=== PATIENT | male | born 1995 | race American Indian/Alaskan Native ===

== ENCOUNTER 2017-11-20 23:02 | Emergency (ER) | payer BC ==
[~2017-11-20 23:02] MED LIST: DUONEB *Not for PRN Use IH ONE
[2017-11-20] MEDS ORDERED: DELTASONE ONE (23:06)
[2017-11-20] MEDS ORDERED: PROVENTIL IH ONE (23:07)
[2017-11-20] MEDS ORDERED: DUONEB *Not for PRN Use IH ONE (23:07)
[2017-11-21] MEDS ORDERED: PROVENTIL IH ONE ×2 (00:50→03:38)
[2017-11-21] MEDS ORDERED: DELTASONE PO ONE (00:50)
--- NOTE | 2017-11-21 03:30 | Emergency Department Report ---
Upper Respiratory HPI - HPI Chief Complaint: Adult Asthma Stated Complaint: ASTHMA ATTACK Time Seen by Provider: 11/21/17 02:52 Duration: 1 Day URI Symptoms: Rhinorrhea: Yes, Sore Throat: No, Ear Pain: No, Cough: Yes, Shortness of Breath: Yes, Sick Contacts: No, Unable to Take Fluids: No, Urine Output Abnormal: No, Listless Behavior: No - Home Meds and Allergies Home Medications: Previous Rx's Medication Instructions Recorded Last Taken Type ALBUTEROL Inhaler [ProAir HFA 2 puff IH QID PRN #1 inhalation 11/21/17 Unknown Rx Inhaler] ALBUTEROL NEB's [Proventil 0.083% 2.5 mg IH QID PRN #25 ampul 11/21/17 Unknown Rx NEBS] Azithromycin [Zithromax Z-JULES] 250 mg PO DAILY #6 tab 11/21/17 Unknown Rx Codeine Phosphate/Guaifenesin 5 ml PO TID PRN #118 ml 11/21/17 Unknown Rx [Guaifen-Codeine 100-10 mg/5 ml] predniSONE [Deltasone] 40 mg PO QDAY #10 tab 11/21/17 Unknown Rx Allergies/Adverse Reactions: Allergies Allergy/AdvReac Type Severity Reaction Status Date / Time shellfish derived Allergy Anaphylaxis Verified 11/21/17 00:49 ED Review of Systems ROS: Stated complaint: ASTHMA ATTACK Other details as noted in HPI Constitutional: denies: chills, fever Eyes: denies: eye pain, eye discharge, vision change ENT: ear pain, congestion Respiratory: cough, shortness of breath, wheezing Cardiovascular: as per HPI. denies: chest pain, palpitations, dyspnea on exertion Endocrine: no symptoms reported Gastrointestinal: denies: abdominal pain, nausea, vomiting, diarrhea, constipation Genitourinary: denies: urgency, dysuria, frequency, hematuria, discharge Musculoskeletal: denies: back pain, joint swelling, arthralgia Skin: denies: rash, lesions Neurological: denies: headache, weakness, paresthesias Psychiatric: denies: anxiety, depression Hematological/Lymphatic: denies: easy bleeding, easy bruising ED Past Medical Hx - Past Medical History Previous Medical History?: Yes Hx Asthma: Yes - Surgical History Past Surgical History?: No - Social History Smoking Status: Never Smoker Substance Use Type: None - Medications Home Medications: Home Medications Medication Instructions Recorded Confirmed Last Taken Type ALBUTEROL Inhaler [ProAir HFA 2 puff IH QID PRN #1 inhalation 11/21/17 Unknown Rx Inhaler] ALBUTEROL NEB's [Proventil 0.083% 2.5 mg IH QID PRN #25 ampul 11/21/17 Unknown Rx NEBS] Azithromycin [Zithromax Z-JULES] 250 mg PO DAILY #6 tab 11/21/17 Unknown Rx Codeine Phosphate/Guaifenesin 5 ml PO TID PRN #118 ml 11/21/17 Unknown Rx [Guaifen-Codeine 100-10 mg/5 ml] predniSONE [Deltasone] 40 mg PO QDAY #10 tab 11/21/17 Unknown Rx ED Bronchiolitis Physical Exam - Exam General: Vital signs noted. No distress. Alert and acting appropriately. HEENT: Yes Rhinorrhea, No Pharyngeal Erythema, No Conjuctival Injection, No Dry Mucous Membranes Ear: Neither TM Bulge, Neither TM Erythema, Neither EAC Discharge Neck: No Adenopathy, No Rigidity Lungs: Yes Good Air Exchange, Yes Wheezes (mild exp wheezes ), Yes Cough, No Clear Lung Sounds, No Stridor, No Nasal Flaring, No Retractions, No Use of Accessory Muscles Heart: Yes Regular, No Murmur Abdomen: Yes Normal Bowel Sounds, No Tenderness, No Peritoneal Signs Skin: No Rash, No Eczema Neurologic: Alert and oriented, no deficits. Musculoskeletal: Unremarkable. ED Physical Exam - General Limitations: No Limitations ED Course Vital Signs 11/21/17 00:41 Temperature 98.1 F Pulse Rate 98 H Respiratory 18 Rate Blood Pressure 167/44 O2 Sat by Pulse 98 Oximetry - Reevaluation(s) Reevaluation #1: 11/21/17 03:27 albuterol and prednisone ED Medical Decision Making - Medical Decision Making this is bronchitis , patient is out of albuterol inhaler, symptoms have resolved after nebs steroid , pt is now ambulatory gait is steady with nad mild exp wheezing plan: refill albuterol, prednisone burst , Zpac, pt will follow up with pcp in 2-3 days. Critical care attestation.: If time is entered above; I have spent that time in minutes in the direct care of this critically ill patient, excluding procedure time. ED Disposition Clinical Impression: Bronchitis, Medication refill Disposition: [id number] TO HOME OR SELFCARE Is pt being admited?: No Does the pt Need Aspirin: No Condition: Fair Instructions: Acute Bronchitis (ED), Chronic Bronchitis (ED) Prescriptions: ALBUTEROL Inhaler [ProAir HFA Inhaler] 2 puff IH QID PRN #1 inhalation PRN Reason: Shortness Of Breath ALBUTEROL NEB's [Proventil 0.083% NEBS] 2.5 mg IH QID PRN #25 ampul PRN Reason: sob wheezing Azithromycin [Zithromax Z-JULES] 250 mg PO DAILY #6 tab Codeine Phosphate/Guaifenesin [Guaifen-Codeine 100-10 mg/5 ml] 5 ml PO TID PRN # 118 ml PRN Reason: cough predniSONE [Deltasone] 40 mg PO QDAY #10 tab Referrals: PRIMARY CARE, [Primary Care Provider] - 3-5 Days Forms: Work/School Release Form(ED) Time of Disposition: 03:35
[2017-11-21 04:37] VITALS: BP 140/84
[2017-11-21] MEDS ORDERED: DUONEB *Not for PRN Use IH ONE (23:00)
== END 2017-11-21 04:25 | disposition home or self-care (01) ==
LOC: ED 23:02
DX: J40 Bronchitis, not specified as acute or chronic (principal); Z91.013 Allergy to seafood
CPT/HCPCS: 99283; J7512